=== PATIENT | male | born 1960 | race Caucasian/White ===

== ENCOUNTER 2017-04-07 17:43 | Emergency (ER) | payer BC, OTHER ==
[~2017-04-07] VITALS: Ht 177.8 cm; Wt 83.7 kg
[~2017-04-07 17:43] MED LIST: Z.0.NO CURRENT MEDS; ZITH250T PO
[2017-04-07 17:47] VITALS: BP 172/94; PULSE 85; RESP 24; TEMP 99.4; O2SAT 100
[2017-04-07] MEDS ORDERED: SODIUM CHLOR 0.9% 1000 ML INJ 1,000 ML IV ONE (18:00)
[2017-04-07] MEDS ORDERED: HYDROmorphone HCL PF 1 MG/ML VIAL IV PUSH ONE (18:00)
[2017-04-07] MEDS ORDERED: ONDANSETRON HCL 4 MG/2 ML VIAL IV PUSH ONE (18:00)
[2017-04-07] MEDS ORDERED: SODIUM CHLORIDE 0.9% FLUSH 10 ML FLUSH IVF PRN (18:00)
--- NOTE | 2017-04-07 18:09 | PD ---
HPI Chief Complaint: Flank/Kidney Pain Time Seen by Provider: 17:55 Travel History International Travel<30 days: No Contact w/Intl Traveler<30days: No Traveled to known affect area: No History of Present Illness HPI This patient complains of left flank pain. Patient had a large left-sided kidney stone. He says that [address] Sevilla broken up with a laser and placed a left sided kidney stent. The had the stent removed at noon today. He says an hour later he developed increased left flank pain. Duration 5 hours. Comes moderate to severe in nature. No alleviating factors. No exacerbating factors. He did not try to contact his urologist but came here instead. PFSH Social History Alcohol Use: Yes (OCCASIONAL) Tobacco Use: No Substance Use: No Allergies-Medications (Allergen,Severity, Reaction): Coded Allergies: No Known Allergies (Verified Allergy, Unknown, 04/07/17) Reported Meds & Prescriptions Reported Meds & Active Scripts Active Hydrocodone-Acetaminophen 10-325 mg Tab 1 Tab PO Q6H PRN Reported [Antibiotic] Unknown Dose Percocet (Oxycodone-Acetaminophen) 5-325 mg Tab 1-2 Tab PO Q4H PRN Lisinopril 10 Mg Tab 10 Mg PO DAILY Review of Systems General / Constitutional: No: Fever Eyes: No: Visual changes HENT: No: Headaches Cardiovascular: No: Chest Pain or Discomfort Respiratory: No: Shortness of Breath Gastrointestinal: No: Abdominal Pain Genitourinary: Positive: Flank Pain, No: Dysuria Musculoskeletal: No: Pain Skin: No Rash Neurologic: No: Weakness Psychiatric: No: Depression Endocrine: No: Polydipsia Hematologic/Lymphatic: No: Easy Bruising Physical Exam Narrative GENERAL: Well-nourished, well-developed patient with left flank pain . SKIN: Focused skin assessment reveals no rash and nodules. Skin is Warm and dry. HEAD: Atraumatic. Normocephalic. EYES: Pupils equal and round. No scleral icterus. No injection or drainage. ENT: No nasal bleeding or discharge. Mucous membranes pink and moist. NECK: Trachea midline. No JVD. CARDIOVASCULAR: Regular rate and rhythm. No murmur appreciated. RESPIRATORY: No accessory muscle use. Clear to auscultation. Breath sounds equal bilaterally. GASTROINTESTINAL: Abdomen soft, non-tender, nondistended. Hepatic and splenic margins not palpable. MUSCULOSKELETAL: No obvious deformities. No clubbing. No cyanosis. No edema. NEUROLOGICAL: Awake and alert. No obvious cranial nerve deficits. Motor grossly within normal limits. Normal speech. PSYCHIATRIC: Appropriate mood and affect; insight and judgment normal. Data Data Last Documented VS Vital Signs Date Time Temp Pulse Resp B/P (MAP) Pulse Ox O2 Delivery O2 Flow Rate FiO2 04/07/17 19:53 78 18 172/91 (118) 100 Room Air 04/07/17 18:48 98.7 Orders Orders Complete Blood Count With Diff (04/07/17 18:00) Basic Metabolic Panel (Bmp) (04/07/17 18:00) Urinalysis - C+S If Indicated (04/07/17 18:00) Ct Abd/Pel W/O Iv Contrast (04/07/17 18:00) Iv Access Insert/Monitor (04/07/17 18:00) Ondansetron Inj (Zofran Inj) (04/07/17 18:00) Sodium Chloride 0.9% Flush (Ns Flush) (04/07/17 18:00) Sodium Chlor 0.9% 1000 Ml Inj (Ns 1000 M (04/07/17 18:00) Hydromorphone Pf Inj (Dilaudid Pf Inj) (04/07/17 18:00) Hydromorphone Pf Inj (Dilaudid Pf Inj) (04/07/17 18:30) Ketorolac Inj (Toradol Inj) (04/07/17 19:30) Tamsulosin (Flomax) (04/07/17 19:30) Hydromorphone Pf Inj (Dilaudid Pf Inj) (04/07/17 19:30) Urinary Catheter Insert/Apply (04/07/17 19:32) Hydromorphone Pf Inj (Dilaudid Pf Inj) (04/07/17 19:45) Urine Culture (04/07/17 20:00) Admit Order (Ed Use Only) (04/07/17 20:39) Labs Laboratory Tests Test 04/07/17 18:27 04/07/17 20:00 White Blood Count 18.9 TH/MM3 Red Blood Count 4.67 MIL/MM3 Hemoglobin 15.2 GM/DL Hematocrit 43.9 % Mean Corpuscular Volume 94.1 FL Mean Corpuscular Hemoglobin 32.6 PG Mean Corpuscular Hemoglobin Concent 34.7 % Red Cell Distribution Width 11.9 % Platelet Count 235 TH/MM3 Mean Platelet Volume 8.3 FL CBC Comment AUTO DIFF Differential Total Cells Counted 100 Neutrophils % (Manual) 66 % Lymphocytes % 19 % Monocytes % 14 % Eosinophils % 1 % Neutrophils # (Manual) 12.5 TH/MM3 Differential Comment FINAL DIFF MANUAL Atypical Lymphocytes % Platelet Estimate NORMAL Platelet Morphology Comment NORMAL Red Cell Morphology Comment NORMAL Blood Urea Nitrogen 9 MG/DL Creatinine 1.30 MG/DL Random Glucose 104 MG/DL Calcium Level 9.2 MG/DL Sodium Level 136 MEQ/L Potassium Level 3.7 MEQ/L Chloride Level 103 MEQ/L Carbon Dioxide Level 21.2 MEQ/L Anion Gap 12 MEQ/L Estimat Glomerular Filtration Rate 57 ML/MIN Urine Color PINK Urine Turbidity CLOUDY Urine pH 8.0 Urine Specific Douglass 1.011 Urine Protein 100 mg/dL Urine Glucose (UA) NEG mg/dL Urine Ketones TRACE mg/dL Urine Occult Blood LARGE Urine Nitrite NEG Urine Bilirubin NEG Urine Leukocyte Esterase TRACE Urine RBC 100-200 /hpf Urine WBC 9-14 /hpf Urine Squamous Epithelial Cells 0-5 /hpf Microscopic Urinalysis Comment CULTURE INDICATED MDM Medical Decision Making Medical Screen Exam Complete: Yes Emergency Medical Condition: Yes Medical Record Reviewed: Yes Differential Diagnosis Kidney stone pain, sciatica, UTI Narrative Course I have reviewed the patient's electronic medical record. he has not been to this facility for kidney stone problems. Only here once before many years ago IV placed Gave him a dose of IV pain and nausea medication 1 L normal saline IV CBC shows leukocytosis Metabolic profile is normal Urinalysis shows hematuria and will be cultured CT of abdomen and pelvis without IV contrast shows numerous stone fragments large is a 7 mm. There is hydronephrosis Case reviewed in detail with covering urologist Dr. Huerta. Patient received a second dose of Dilaudid as well as Toradol and Flomax Urologist reports that he can get observation at the main hospital for intractable pain if it's not controlled or pain is controlled he can go home and follow-up in clinic as an outpatient. He may need repeat placement of stent. I discussed options with the patient as well as family at bedside. Patient thought about it for a long time. He's decided he wants to go home and try as an outpatient. I'm going to write him some strong narcotic medication because he has significant pain from his kidney stones I discussed side effects including sedation and constipation and habit-forming nature of these medications Flomax prescribed as well Diagnosis Primary Impression: Kidney stone on left side Additional Impression: Hydronephrosis Qualified Codes: N13.2 - Hydronephrosis with renal and ureteral calculous obstruction Additional Instructions: The patient was warned about potential sedation for the medications they will receive on prescription. The patient was advised to follow up with their urologist and return if they worsen. Med/Other Pt SpecificInfo: Prescription(s) given Scripts Hydrocodone-Acetaminophen (Hydrocodone-Acetaminophen) 10-325 mg Tab 1 TAB PO Q6H Y for PAIN, #40 TAB 0 Refills Prov: Dilan Nugent MD 04/07/17 Disposition: 01 DISCHARGE HOME Condition: Stable Dilan Nugent MD Apr 07, 2017 18:09
[2017-04-07] MEDS ORDERED: PERC5TAB12 PO (18:11)
[2017-04-07] MEDS ORDERED: LISI10TA3 PO (18:11)
[2017-04-07] MEDS ORDERED: Antibiotic (18:11)
--- NOTE | 2017-04-07 18:28 | RADRPT ---
EXAM DATE/TIME: 04/07/2017 18:07 [facility] COMPARISON: No previous studies available for comparison. INDICATIONS : Left sided pain. Post stent removal today. ORAL CONTRAST: No oral contrast ingested. RADIATION DOSE: 16.45 CTDIvol (mGy) MEDICAL HISTORY : Renal calculi. SURGICAL HISTORY : Uretal stent. ENCOUNTER: Initial ACUITY: 1 day PAIN SCALE: 10/10 LOCATION: Left abdomen TECHNIQUE: Renal colic protocol. Volumetric scanning of the abdomen and pelvis was performed. Using automated exposure control and adjustment of the mA and/or kV according to patient size, radiation dose was kep t as low as reasonably achievable to obtain optimal diagnostic quality images. DICOM format image da ta is available electronically for review and comparison. FINDINGS: No prior imaging studies at this institution. Right side: No evidence of renal stones or hydronephrosis. The right ureter is normal in dimension without evide nce of calcified stones. Left side: Abnormal. There is moderate severity hydronephrosis and prominent extrarenal pelvis. The left urete r is dilated to the distal one third. There are several calcified stones within the left ureter, the largest measuring 7 mm in the distal one third (image #[id number]); there are several smaller stone fragmen ts proximal. There are also several stones in the proximal one third of the left ureter, the largest of which measures 4 mm (image #[id number]) with several smaller adjacent stones. There are 5 small stones i n the collecting system of the hydronephrotic left kidney, 3 in the upper pole and 2 in the lower joey e. There is stranding of the fat pad in the perinephric space and about the proximal left ureter. Bladder: Smooth margins. No calcifications within the lumen. Other: Mild enlargement of the prostate. No dilated loops of small or large bowel. No evidence of free flu id. No calcified gallstones. CONCLUSION: There is evidence of obstruction on the left side with several calcified stones in the distal and pro ximal left ureter, hydroureter and hydronephrosis, as well as several nonobstructing small stones in the collecting system of the left kidney. Eze Rowe MD on April 07, 2017 at 18:19 Board Certified Radiologist. This report was verified electronically.
[2017-04-07] MEDS ORDERED: HYDROmorphone HCL PF 2 MG/ML VIAL IV PUSH ONE ×2 (18:30→19:45)
[2017-04-07 18:42] LABS: HEMATOCRIT 43.9 % (39.0-51.0); MEAN CELL VOLUME 94.1 FL (80.0-100.0); MEAN CORPUSCULAR HEMOGLOBIN 32.6 PG (27.0-34.0); MEAN CORPUSCULAR HGB CONC 34.7 % (32.0-36.0); PLATELET COUNT 235 TH/MM3 (150-450); POTASSIUM 3.7 MEQ/L (3.5-5.1); RED BLOOD COUNT 4.67 MIL/MM3 (4.50-5.90); RED CELL DISTRIBUTION WIDTH 11.9 % (11.6-17.2); WHITE BLOOD COUNT 18.9 TH/MM3 (4.0-11.0)
[2017-04-07 18:44] LABS: HEMO FLAGS AUTO DIFF
[2017-04-07 18:46] LABS: BICARBONATE 21.2 MEQ/L (21.0-32.0)
[2017-04-07 18:48] VITALS: BP 145/85; PULSE 76; RESP 15; TEMP 98.7; O2SAT 98
[2017-04-07 19:05] LABS: EOSINOPHILS 1 % (0-4); NEUTROPHIL # MANUAL DIFF 12.5 TH/MM3 (1.8-7.7); PLATELET ESTIMATE SMEAR NORMAL (NORMAL); PLATELET MORPHOLOGY NORMAL (NORMAL); POLYS (SEG NEUTROPHILS) 66 % (16-70); SCAN/DIFF FINAL DIFF MANUAL; WBC DIFF SAMPLE 100
[2017-04-07] MEDS ORDERED: KETOROLAC TROMETHAMINE 30 MG/ML (IVP) VIAL IV PUSH ONE (19:30)
[2017-04-07] MEDS ORDERED: HYDROmorphone HCL PF 1 MG/ML VIAL IVS ONE (19:30)
[2017-04-07] MEDS ORDERED: TAMSULOSIN HCL 0.4 MG CAP PO ONE (19:30)
[2017-04-07 19:53] VITALS: BP 172/91; PULSE 78; RESP 18; O2SAT 100
[2017-04-07 20:19] LABS: BLOOD, URINE LARGE (NEG); GLUCOSE,URINE NEG (NEG); KETONE, URINE TRACE mg/dL (NEG); NITRITE,URINE NEG (NEG)
[2017-04-07 20:29] LABS: URINE COLOR PINK (YELLW/STRAW)
[2017-04-07 20:31] LABS: COMMENT (UR) CULTURE INDICATED; CULTURE IF INDICATED CULTURE INDICATED; RBC, URINE 100-200 /hpf (0-3); SQUAMOUS EPITHELIAL CELL URINE 0-5 /hpf (0-5)
[2017-04-07] MEDS ORDERED: HYDR-3583 PO (20:50)
[2017-04-07] MEDS ORDERED: TAMS5CAP PO (20:55)
[2017-04-07] MEDS ORDERED: ZOFR4TAB PO (20:55)
== END 2017-04-07 21:30 | disposition home or self-care (01) ==
LOC: PHED 17:43
DX: N13.2 Hydronephrosis with renal and ureteral calculous obstruction (principal); Z87.442 Personal history of urinary calculi; Z79.899 Other long term (current) drug therapy
CPT/HCPCS: 51702; 74176; 80048; 81001; 85007; 85027; 87086; 96361; 96374; 96375; 96376; 99285; J1170; J1885; J2405; J7030